=== PATIENT | male | born 1970 | race Caucasian/White ===

== ENCOUNTER 2023-01-28 20:16 | Emergency (ER) | payer OTHER ==
[~2023-01-28] VITALS: Ht 175.3 cm; Wt 102.7 kg
[~2023-01-28 20:16] MED LIST: CLONIDINE HCL0.2 MG PO; HYDROCHLOROTHIA50 MG PO; LISINOPRIL40 MG PO; NIFEDIPINE ER90 M1 PO; OMEPRAZOLE20 MG PO
[2023-01-28] MEDS ORDERED: ATORVASTATIN CA20 MG PO (20:32)
[2023-01-28] MEDS ORDERED: POTASSIUM CHLO20 ME1 PO (20:32)
[2023-01-28] MEDS ORDERED: IBUPROFEN600 MG PO (20:32)
[2023-01-28] MEDS ORDERED: ALOGLIPTIN12.5 MG PO (20:33)
[2023-01-28] MEDS ORDERED: COLCHICINE0.6 M1 PO (21:59)
[2023-01-28 22:20] VITALS: BP 118/86
== END 2023-01-28 22:21 | disposition home or self-care (01) ==
LOC: ED 20:16
DX: M10.9 Gout, unspecified (principal); I10 Essential (primary) hypertension; R73.03 Prediabetes; Z79.899 Other long term (current) drug therapy
CPT/HCPCS: 36415; 73110; 80053; 84550; 85025; 85651; 86140; 99283-25

== ENCOUNTER 2023-05-20 16:40 | Emergency (ER) | payer OTHER ==
[~2023-05-20] VITALS: Ht 175.3 cm; Wt 99.9 kg
[~2023-05-20 16:40] MED LIST changes: +ALOGLIPTIN12.5 MG PO; +ATORVASTATIN CA20 MG PO; +COLCHICINE0.6 M1 PO; +IBUPROFEN600 MG PO; +POTASSIUM CHLO20 ME1 PO
[2023-05-20 17:13] VITALS: BP 134/96
== END 2023-05-20 17:15 | disposition home or self-care (01) ==
LOC: ED 16:40
DX: I10 Essential (primary) hypertension (principal); R73.03 Prediabetes; M10.9 Gout, unspecified; Z79.899 Other long term (current) drug therapy
CPT/HCPCS: 99283

== ENCOUNTER 2024-09-05 09:04 | Day surgery (SDC) | payer OTHER ==
[~2024-09-05] VITALS: Ht 175.3 cm; Wt 100.0 kg
--- NOTE | ~2024-09-05 | OR ---
[facility] [address] [place], [place] [address] Draft DATE OF OPERATION: 09/05/2024 SURGEON: Carrie Bahena MD PREOPERATIVE DIAGNOSIS: Colon screening. POSTOPERATIVE DIAGNOSES: 1. Minimal diverticulosis of sigmoid. 2. Possible linear polyp of sigmoid. PROCEDURE: Total colonoscopy to cecum with cold morcellation polypectomy x1. ANESTHESIA: Intravenous sedation, fentanyl 150 mcg and Versed 7 mg. INDICATIONS FOR THE PROCEDURE: This 54-year-old white man is patient of Dr. Jorge Kenney, formally Dr. Norma Galarza. He is referred for screening colonoscopy. He has no symptoms of bleeding, diarrhea, or constipation and no family history of colon cancer. Quite notably, the patient is planning to retire in October and move permanently to the [facility] to live. He is admitted at this time to undergo screening colonoscopy. He understands the risk of bleeding, infection, and perforation. FINDINGS: The prep was good. Complete colonoscopy was undertaken of the cecum, with full intubation of the cecum. There were few scattered diverticula of the sigmoid colon. There was one linear mucosal lesion, which was suggestive of a polyp, though not entirely certain despite narrow band imaging. This was excised completely. There were no other findings of note. DESCRIPTION OF PROCEDURE: The patient was brought to the endoscopy suite and placed in lateral decubitus position given intravenous sedation to the point of slurred speech and nystagmus. Digital rectal examination was normal. An Olympus video colonoscope was passed in the rectum and manipulated throughout the colon, ultimately intubating the cecum itself. A few scattered diverticula were noted in the sigmoid. Full intubation of the cecum was accomplished. Irrigation was PATIENT NAME: GERARDO MENA OPERATIVE REPORT DATE OF : 68 REPORT #: [id number] PHYSICIAN: CARRIE BAHENA MD PCP: NORMA GALARZA MD REPORT IS CONFIDENTIAL AND NOT TO BE RELEASED WITHOUT AUTHORIZATION [facility] [address] [place], [place] [address] Draft undertaken. The ileocecal valve and appendiceal orifice were normal. The scope was withdrawn from that point. Examination showed no sign of abnormality until the mid sigmoid, where linear mucosal lesion was noted. It was uncertain if this was actually an adenomatous polyp or not. Narrow-band imaging was performed, which did support some suggestion of polyp, and on that basis it was excised with cold morcellation technique completely. Further withdrawal of scope showed no other abnormality. The rectum was normal. The scope was removed. The patient was taken to the recovery room in good condition. CONCLUDING DIAGNOSES: 1. Diverticula. 2. Possible linear polyp, sigmoid (excised). PLAN: Plan would recommend repeat colonoscopy in 7-10 years based on current recommendations including for those with adenomatous polyp, and we would recommend high-fiber diet based on diverticulosis. He will return to the ongoing care of Dr. Jorge Kenney. MD ELLY Oshea/BRANDIN /[id number] cc: Jorge Kenney MD Copies: JORGE KENNEY MD ~ PATIENT NAME: GERARDO MENA OPERATIVE REPORT DATE OF : [birth year] REPORT #: [id number] PHYSICIAN: CARRIE BAHENA MD PCP: NORMA GALARZA MD REPORT IS CONFIDENTIAL AND NOT TO BE RELEASED WITHOUT AUTHORIZATION
[~2024-09-05 09:04] MED LIST changes: +IBLOOD GLUCOSE TEST STRIP 1 EA TEST VI PRN; +LACTATED RINGER'S 1,000 ML IV SCH; +LIDOCAINE HCL 1% 5 ML SDV INJ ONE; +MIDAZOLAM HCL 5 MG/5 ML VIAL IV PRN; +MIDAZOLAM HCL 5 MG/5 ML VIAL ONE; +fentaNYL citrate 100 MCG/2 ML VIAL IV PRN; +fentaNYL citrate 100 MCG/2 ML VIAL ONE
[2024-09-05 09:34] VITALS: BP 133/83
--- NOTE | 2024-09-05 11:00 | NUR ---
09/05/24 1100 Cheryl Quiñonez 1054-PATIENT ARRIVED TO PACU ON RA RR EVEN PATIENT AWAKE DENIES PAIN OR NAUSEA. LAYING LEFT LATERAL ABDOMEN ROUND ENCOURAGED TO PASS GAS. GLUCOSE 149. ORIENTED TO PACU CLOSES EYES. IVF INFUSING.
[2024-09-05 11:29] VITALS: BP 120/86
--- NOTE | 2024-09-09 14:34 | PATH ---
[facility] [address] [facility] [place] [place] [address] Signed SPECIMEN(S): A SIGMOID POLYP SPECIMEN SOURCE: A. SIGMOID POLYP CLINICAL HISTORY: Initial screening colonoscopy FINAL PATHOLOGIC DIAGNOSIS: Sigmoid polyp: - Fragments of benign polypoid colonic mucosa with slight adenomatous change (one fragment). JVR:cml MICROSCOPIC EXAMINATION: Histologic sections of all submitted blocks are examined by light microscopy. These findings, together with the gross examination, support the pathologic diagnosis. GROSS DESCRIPTION: The specimen, labeled and designated "Stanley, sigmoid polyp," is received in formalin and consists of eight carrillo soft tissue fragments, ranging from 0.2-0.5 cm. Entirely submitted in (A1). VB (under the direct supervision of a pathologist) The Gross Description was prepared using a voice recognition system. The report was reviewed for accuracy; however, sound-alike word errors, addition and/or deletions may occur. If there is any question about this report, please contact Client Services. PERFORMING LABORATORY: Technical component was performed by [facility], [address] [place] [id number] (CLIA# [id number]). Professional interpretation was performed by [facility] Pathology - [facility], [address] [place] [id number] (CLIA#: [id number]). Diagnostician: Nasir Martinez MD Pathologist Electronically Signed 09/09/2024 Copies: PATIENT NAME: GERARDO MENA PATHOLOGY DATE OF : 68 REPORT #: [id number] PHYSICIAN: MARY PATHOLOGY PCP: NORMA GALARZA MD REPORT IS CONFIDENTIAL AND NOT TO BE RELEASED WITHOUT AUTHORIZATION [address] [address] Signed ~ PATIENT NAME: GERARDO MENA PATHOLOGY DATE OF : [birth year] REPORT #: [id number] PHYSICIAN: MARY PATHOLOGY PCP: NORMA GALARZA MD REPORT IS CONFIDENTIAL AND NOT TO BE RELEASED WITHOUT AUTHORIZATION
== END 2024-09-05 11:35 | disposition home or self-care (01) ==
LOC: DS 09:04
PROVIDERS: ATTEND Surgery
PROC: 0DBN8ZZ Excision of Sigmoid Colon, Via Natural or Artificial Opening Endoscopic (ICD-10-PCS; principal; 2024-09-05 10:00)
DX: Z12.11 Encounter for screening for malignant neoplasm of colon (principal); D12.5 Benign neoplasm of sigmoid colon; K57.30 Diverticulosis of large intestine without perforation or abscess without bleeding; E11.9 Type 2 diabetes mellitus without complications; I10 Essential (primary) hypertension; M10.9 Gout, unspecified; E66.9 Obesity, unspecified; Z68.32 Body mass index [BMI] 32.0-32.9, adult; Z79.84 Long term (current) use of oral hypoglycemic drugs; Z79.85 Long-term (current) use of injectable non-insulin antidiabetic drugs; Z79.899 Other long term (current) drug therapy; Z88.8 Allergy status to other drugs, medicaments and biological substances
CPT/HCPCS: 99153; G0500; J2250; J3010; J7121